=== PATIENT | female | born 1985 | race Two or more races ===

== ENCOUNTER 2017-04-07 18:49 | Emergency (ER) | payer SELFPAY ==
[2017-04-07 18:54] VITALS: BP 107/57; PULSE 78; RESP 16; TEMP 98.2; O2SAT 95
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
== END 2017-04-07 19:48 | disposition home or self-care (01) ==
DX: S00.83XA Contusion of other part of head, initial encounter (principal); S40.022A Contusion of left upper arm, initial encounter; F17.200 Nicotine dependence, unspecified, uncomplicated; V78.6XXA Passenger on bus injured in noncollision transport accident in traffic accident, initial encounter; Y92.410 Unspecified street and highway as the place of occurrence of the external cause